=== PATIENT | female | born 1985 | race Caucasian/White ===

== ENCOUNTER 2017-05-28 21:43 | Emergency (ER) | payer SELFPAY ==
[~2017-05-28] VITALS: Ht 170.2 cm; Wt 89.0 kg
[2017-05-28 21:54] VITALS: Ht 170.2 cm; Wt 89.0 kg
[2017-05-28] MEDS ORDERED: HYDROmorphONE 2 MG/ML SYG IM STA (23:03)
[2017-05-28] MEDS ORDERED: ONDANSETRON (ODT) 4 MG TAB ODT STA (23:03)
[2017-05-28] MEDS ORDERED: CARI350T PO (23:11)
[2017-05-28] MEDS ORDERED: ONDA4TAB14 PO (23:11)
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
== END 2017-05-28 23:36 | disposition home or self-care (01) ==
LOC: FTE 21:43
DX: M54.5 Low back pain (principal); R11.10 Vomiting, unspecified
CPT/HCPCS: 96372; 99284; J1170